=== PATIENT | male | born 1945 | race Caucasian/White ===

== ENCOUNTER → 2022-03-16 | Day surgery (SDC) | payer MEDICARE, OTHER | LOC: MSO 06:54 | DX: H25.12 Age-related nuclear cataract, left eye (principal); Z87.891 Personal history of nicotine dependence | CPT/HCPCS: 00142; J0171; J2250; V2632 ==

== ENCOUNTER → 2022-04-20 | Day surgery (SDC) | payer MEDICARE, OTHER | LOC: MSO 07:19 | DX: H25.11 Age-related nuclear cataract, right eye (principal); Z87.891 Personal history of nicotine dependence | CPT/HCPCS: 00142; J0171; J2250; V2632 ==

== ENCOUNTER → 2022-05-04 | Outpatient (CLI) | payer MEDICARE, OTHER | LOC: RAD 08:42 | DX: M17.0 Bilateral primary osteoarthritis of knee (principal) ==

== ENCOUNTER → 2024-06-04 | Outpatient (CLI) | payer MEDICARE, OTHER | LOC: RAD 11:50 | DX: M18.11 Unilateral primary osteoarthritis of first carpometacarpal joint, right hand (principal) ==